=== PATIENT | female | born 1985 | race Asian ===

== ENCOUNTER 2019-01-07 14:12 | Emergency (ER) | payer OTHER ==
[~2019-01-07] VITALS: Ht 162.6 cm; Wt 63.5 kg
[2019-01-07] MEDS ORDERED: NKM (14:31)
[2019-01-07 14:41] VITALS: BP 106/71
--- NOTE | 2019-01-07 14:54 | Emergency Room Report ---
History of Present Illness General Chief Complaint: General Complaint Source: Patient Present Illness HPI 33-year-old female patient presents the ER complaining of heavy vaginal bleeding for the past 10 days. Reports feelings of increased lethargy during this time. Reports suprapubic pain during this time. Denies dysuria, hematuria , vaginal discharge. Reports during her previous menstrual cycle she had clots , denies clots currently. Denies syncope or fainting. Denies dizziness. Denies vomiting or diarrhea. Denies recent travel outside the country. Reports she does not take any control medication. Denies chest pain or shortness of breath. Denies fever. Reports able to pass flatus. Denies flank pain. Reports that she uses 1 pad every 2 hours. Denies other aggravating or relieving factors. Allergies: Coded Allergies: No Known Allergies (Unverified , 01/07/19) Patient History Past Medical History: see triage record Last Menstrual Period: on period Reviewed Nursing Documentation: PMH: Agreed; PSxH: Agreed Nursing Documentation-PMH Past Medical History: No Stated History Review of Systems All Other Systems: negative except mentioned in HPI Physical Exam Vital Signs Date Time Temp Pulse Resp B/P (MAP) Pulse Ox O2 Delivery O2 Flow Rate FiO2 01/07/19 14:27 98.1 94 16 106/71 96 Room Air Sp02 EP Interpretation: reviewed, normal General Appearance: well appearing, no apparent distress, alert, GCS 15, non- toxic Head: normocephalic, atraumatic Eyes: bilateral eye normal inspection, bilateral eye PERRL ENT: hearing grossly normal, normal pharynx, no angioedema, normal voice, uvula midline, moist mucus membranes Neck: full range of motion, no bony tend Respiratory: lungs clear, normal breath sounds, no rhonchi, no respiratory distress, no accessory muscle use, no wheezing, speaking full sentences Cardiovascular #1: regular rate, rhythm, no edema Gastrointestinal: non tender, soft, no mass, non-distended, no guarding, no rebound Genitourinary: no CVA tenderness Musculoskeletal: back normal, digits/nails normal, gait/station normal, normal range of motion, non-tender Neurologic: alert, oriented x3, responsive, motor strength/tone normal, sensory intact Psychiatric: mood/affect normal Skin: no rash Lymphatic: no adenopathy Medical Decision Making PA Attestation Dr. Barnes is my supervising Physician whom patient management has been discussed with. Diagnostic Impression: Primary Impression: Miscarriage ER Course Pt presents to ED c/o heavy vaginal bleeding x 10 days. DDX considered but are not limited to threatened , incomplete , complete , ectopic, UTI, septic , fibroids, dysfunctional uterine bleeding, STI, ovarian torsion, anemia. Negative Rovsing, no fever, low suspicion for appendicitis, does not require CT at this time. VITAL SIGNS are WNL, patient is afebrile Pelvic exam: cervical os opened or closed/ deferred. Ordered CBC, CMP, Type and Screen, UA, UCG, bHCG, IV NS and pelvic US. ER COURSE: CBC and CMP unremarkable,, H&H WNL, low suspicion for anemia UA results unremarkable, negative nitrites negative leukocyte esterase, elevated RBCs likely due to vaginal bleeding Urine negative however HCG qualitative positive and HCG quant elevated Rh antibody negative Blood type A positive Results discussed with patient. Pelvus US shows no evidence of IUP or ectopic . Results discussed with patient. Instructed patient to follow-up with [facility] specialist for serial hCG and repeat ultrasounds to confirm trending downward and rule out ectopic . Patient likely had a miscarriage. Patient resting comfortably, in no acute distress, nontoxic appearing. Denies abdominal pain. Okay for outpatient follow-up and treatment. F/u with OBGYN in 48 hours, need serial Beta HCG and US ER precautions given. Provided with contact information for [facility] specialist. DISCHARGE: At this time pt. is stable for d/c to home. At this time patient is resting comfortably, in no acute distress, nontoxic appearing, smiling and talking without difficulty. Will provide printed patient care instructions, and any necessary prescriptions. Patient instructed to follow with OBGYN for further treatment and referral as needed. Care plan and follow up instructions have been discussed with the patient prior to discharge. Patient reports understanding and agreement to treatment plan. Patient questions asked and answered. ER precautions given, patient instructed to return to ER immediately for any new or worsening of symptoms. - Please note that this Emergency Department Report was dictated using [employer] technology software, occasionally this can lead to erroneous entry secondary to interpretation by the dictation equipment. Labs Test 01/07/19 14:40 01/07/19 15:00 Urine Color Pale yellow Urine Appearance Clear Urine pH 5 (4.5-8.0) Urine Specific [place] 1.020 (1.005-1.035) Urine Protein Negative (NEGATIVE) Urine Glucose (UA) Negative (NEGATIVE) Urine Ketones Negative (NEGATIVE) Urine Blood 4+ (NEGATIVE) Urine Nitrite Negative (NEGATIVE) Urine Bilirubin Negative (NEGATIVE) Urine Urobilinogen Normal MG/DL (0.0-1.0) Urine Leukocyte Esterase Negative (NEGATIVE) Urine RBC 5-10 /HPF (0 - 2) Urine WBC 0-2 /HPF (0 - 2) Urine Squamous Epithelial Cells Few /LPF (NONE/OCC) Urine Bacteria Few /HPF (NONE) Urine HCG, Qualitative Negative (NEGATIVE) White Blood Count 8.1 K/UL (4.8-10.8) Red Blood Count 4.93 M/UL (4.20-5.40) Hemoglobin 14.7 G/DL (12.0-16.0) Hematocrit 42.3 % (37.0-47.0) Mean Corpuscular Volume 86 FL (80-99) Mean Corpuscular Hemoglobin 29.8 PG (27.0-31.0) Mean Corpuscular Hemoglobin Concent 34.7 G/DL (32.0-36.0) Red Cell Distribution Width 11.0 % (11.6-14.8) Platelet Count 151 K/UL (150-450) Mean Platelet Volume 6.6 FL (6.5-10.1) Neutrophils (%) (Auto) 63.1 % (45.0-75.0) Lymphocytes (%) (Auto) 28.4 % (20.0-45.0) Monocytes (%) (Auto) 5.1 % (1.0-10.0) Eosinophils (%) (Auto) 2.7 % (0.0-3.0) Basophils (%) (Auto) 0.7 % (0.0-2.0) Sodium Level 138 MMOL/L (136-145) Potassium Level 3.4 MMOL/L (3.5-5.1) Chloride Level 101 MMOL/L (98-107) Carbon Dioxide Level 30 MMOL/L (21-32) Anion Gap 8 mmol/L (5-15) Blood Urea Nitrogen 9 mg/dL (7-18) Creatinine 0.7 MG/DL (0.55-1.30) Estimat Glomerular Filtration Rate > 60 mL/min (>60) Glucose Level 138 MG/DL (74-106) Calcium Level 9.7 MG/DL (8.5-10.1) Total Bilirubin 0.3 MG/DL (0.2-1.0) Aspartate Amino Transf (AST/SGOT) 18 U/L (15-37) Alanine Aminotransferase (ALT/SGPT) 31 U/L (12-78) Alkaline Phosphatase 58 U/L (46-116) Total Protein 8.1 G/DL (6.4-8.2) Albumin 4.1 G/DL (3.4-5.0) Globulin 4.0 g/dL Albumin/Globulin Ratio 1.0 (1.0-2.7) Lipase 124 U/L (73-393) Human Chorionic Gonadotropin, Qual Positive (NEGATIVE) Human Chorionic Gonadotropin, Quant 46 mIU/mL (1-6) CT/MRI/US Diagnostic Results CT/MRI/US Diagnostic Results : Imaging Test Ordered: Pelvic US Impression If the patient has a positive hCG, there is no convincing evidence of an intrauterine or ectopic at this time. Suggest following the hCG trend and short interval follow-up ultrasound. In the setting of a negative hCG, there are no clear findings to explain the pelvic pain. Small free fluid is nonspecific but can be sequela of a ruptured ovarian cyst for example. Last Vital Signs Date Time Temp Pulse Resp B/P (MAP) Pulse Ox O2 Delivery O2 Flow Rate FiO2 01/07/19 14:41 94 16 Room Air 01/07/19 14:41 98.1 106/71 96 Status: improved Disposition: HOME, SELF-CARE Condition: Stable Patient Instructions: Miscarriage, [id number] Additional Instructions: Followup with OBGYN in 1-2 days for repeat US and serial HCG levels. Take medications as directed. Take Tylenol for pain. Patient questions asked and answered. ER precautions given, patient instructed to return to ER immediately for any new or worsening of symptoms including but not limited to chest pain, SOB, intractable vomiting, profuse vaginal bleeding, abdominal pain. Blood type A positive Rh anitbody negative Ryan Leonard Jan 07, 2019 14:54
[2019-01-07 15:20] LABS: APPEARANCE,URINE CLEAR; BILIRUBIN, URINE NEGATIVE (NEGATIVE); COLOR,URINE PALE YELLOW; GLUCOSE, URINE (UA) NEGATIVE (NEGATIVE); KETONES,URINE NEGATIVE (NEGATIVE); LEUKOCYTE ESTERASE ,URINE NEGATIVE (NEGATIVE); NITRITE,URINE NEGATIVE (NEGATIVE); PH,URINE 5 (4.5-8.0); PROTEIN,URINE NEGATIVE (NEGATIVE); UROBILINOGEN,URINE NORMAL MG/DL (0.0-1.0)
[2019-01-07 15:27] LABS: BASOPHILS % (AUTO) 0.7 % (0.0-2.0); EOSINOPHILS % (AUTO) 2.7 % (0.0-3.0); HEMATOCRIT 42.3 % (37.0-47.0); HEMOGLOBIN 14.7 G/DL (12.0-16.0); LYMPHOCYTES % (AUTO) 28.4 % (20.0-45.0); MEAN CORPUSCULAR VOLUME 86 FL (80-99); MONOCYTES % (AUTO) 5.1 % (1.0-10.0); NEUTROPHILS % (AUTO) 63.1 % (45.0-75.0); PLATELET COUNT 151 K/UL (150-450); RED BLOOD COUNT 4.93 M/UL (4.20-5.40); WHITE BLOOD COUNT 8.1 K/UL (4.8-10.8)
[2019-01-07 15:30] LABS: ANION GAP 8 mmol/L (5-15); BLOOD UREA NITROGEN 9 mg/dL (7-18); CALCIUM 9.7 MG/DL (8.5-10.1); CARBON DIOXIDE 30 MMOL/L (21-32); CHLORIDE 101 MMOL/L (98-107); CREATININE 0.7 MG/DL (0.55-1.30); POTASSIUM 3.4 MMOL/L (3.5-5.1); SODIUM 138 MMOL/L (136-145)
[2019-01-07 15:34] LABS: ALANINE AMINOTRANSFERASE 31 U/L (12-78); ALBUMIN 4.1 G/DL (3.4-5.0); ALKALINE PHOSPHATASE 58 U/L (46-116); ASPARTATE AMINO TRANSFERASE 18 U/L (15-37); BILIRUBIN,TOTAL 0.3 MG/DL (0.2-1.0)
[2019-01-07 19:20] VITALS: BP 110/86
--- NOTE | 2019-01-07 19:36 | Diagnostic Imaging Report ---
EXAM: US Pelvis Complete, Transabdominal CLINICAL HISTORY: ABD PAIN TECHNIQUE: Real-time transabdominal pelvic ultrasound (complete) with image documentation. COMPARISON: No relevant prior studies available. FINDINGS: Uterus/cervix: Possible small fibroid. Endometrial complex measures up to 8 mm. Right ovary: Ovaries are normal. Uterus measures 8.8 x 5.2 x 4.9 cm. Right ovary measures 1.8 x 1.5 x 2.2 cm. The left ovary measures 2. 5.5 x 1.6 cm. Suspected fibroid measures up to 1.1 cm. Normal blood flow. Left ovary: See above. Free fluid: Small free pelvic fluid noted. Bladder: Unremarkable as visualized. Wall is normal thickness for degree of distention. Other findings: No intrauterine seen. IMPRESSION: If the patient has a positive hCG, there is no convincing evidence of an intrauterine or ectopic at this time. Suggest following the hCG trend and short interval follow-up ultrasound. In the setting of a negative hCG, there are no clear findings to explain the pelvic pain. Small free fluid is nonspecific but can be sequela of a ruptured ovarian cyst for example.
== END 2019-01-07 19:20 | disposition home or self-care (01) ==
LOC: EMR 18:10
DX: O03.9 Complete or unspecified spontaneous abortion without complication (principal)
CPT/HCPCS: 36415; 76856; 80053; 81003; 81025; 83690; 84702; 84703; 85025; 86850; 86900; 86901; 96360; 99284

== ENCOUNTER 2019-01-09 10:57 | Emergency (ER) | payer OTHER ==
[~2019-01-09] VITALS: Ht 165.1 cm; Wt 63.5 kg
[~2019-01-09 10:57] MED LIST: NKM
[2019-01-09 11:52] LABS: BASOPHILS % (AUTO) 0.8 % (0.0-2.0); EOSINOPHILS % (AUTO) 2.5 % (0.0-3.0); HEMOGLOBIN 14.4 G/DL (12.0-16.0); MEAN CORPUSCULAR VOLUME 87 FL (80-99); MONOCYTES % (AUTO) 7.4 % (1.0-10.0); NEUTROPHILS % (AUTO) 62.3 % (45.0-75.0); PLATELET COUNT 138 K/UL (150-450); RED BLOOD COUNT 4.95 M/UL (4.20-5.40); RED CELL DISTRIBUTION WIDTH 11.1 % (11.6-14.8); WHITE BLOOD COUNT 7.2 K/UL (4.8-10.8)
--- NOTE | 2019-01-09 13:13 | Emergency Room Report ---
History of Present Illness General Chief Complaint: Complications Source: Patient Present Illness [facility] Patient was seen January 07, 2 days ago, for vaginal bleeding and back pain with history of being . An ultrasound with was done which did not reveal intrauterine and therefore there was some consideration of possible ectopic. Quantitative hCG was 46 at that time. She was discharged with a diagnosis of miscarriage. She was advised to follow-up in the clinic for repeat quantitative hCG. She presents to have that blood test done. She states she still has some mild back pain. The bleeding has decreased. Yesterday she had a pad every 2 hours. Today this is decreased and she is not passing any clot material. The pain in her back is rated 5/10 and aching. There is no radiation. There is no abdominal pain. She denies fevers or chills. The bleeding began 10 days ago. No dizziness or palpitations. No chest pain or shortness of breath. Blood type A+. 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 Reviewed Nursing Documentation: PMH: Agreed; PSxH: Agreed Nursing Documentation-PMH Past Medical History: No Stated History Review of Systems All Other Systems: negative except mentioned in HPI Physical Exam Vital Signs Date Time Temp Pulse Resp B/P (MAP) Pulse Ox O2 Delivery O2 Flow Rate FiO2 01/09/19 11:01 98.2 94 18 109/72 97 Room Air Sp02 EP Interpretation: reviewed, normal General Appearance: well appearing, no apparent distress Head: normocephalic, atraumatic Eyes: bilateral eye normal inspection, bilateral eye PERRL ENT: hearing grossly normal, normal voice, moist mucus membranes Neck: full range of motion, supple Respiratory: no respiratory distress, speaking full sentences Gastrointestinal: normal inspection, normal bowel sounds, non tender Genitourinary: no CVA tenderness, deferred - Due to previous ultrasound Musculoskeletal: back normal, gait/station normal, normal range of motion, other - Nontender back Neurologic: alert, oriented x3, normal gait, grossly normal Psychiatric: mood/affect normal Skin: no rash Medical Decision Making Diagnostic Impression: Primary Impression: Miscarriage ER Course Patient re-presents for repeat beta hCG. Differential includes miscarriage versus ectopic. Bleeding is decreased. CBC and beta hCG indicated. Tylenol is given. Quantitative hCG is 16. H&H normal. Discussed results with the patient. She states the pain is quite decreased. Patient stable for outpatient observation and treatment. Given listing of clinics for follow-up. Laboratory Tests Test 01/09/19 11:40 White Blood Count 7.2 K/UL (4.8-10.8) Red Blood Count 4.95 M/UL (4.20-5.40) Hemoglobin 14.4 G/DL (12.0-16.0) Hematocrit 43.0 % (37.0-47.0) Mean Corpuscular Volume 87 FL (80-99) Mean Corpuscular Hemoglobin 29.2 PG (27.0-31.0) Mean Corpuscular Hemoglobin Concent 33.5 G/DL (32.0-36.0) Red Cell Distribution Width 11.1 % (11.6-14.8) L Platelet Count 138 K/UL (150-450) L Mean Platelet Volume 6.7 FL (6.5-10.1) Neutrophils (%) (Auto) 62.3 % (45.0-75.0) Lymphocytes (%) (Auto) 27.0 % (20.0-45.0) Monocytes (%) (Auto) 7.4 % (1.0-10.0) Eosinophils (%) (Auto) 2.5 % (0.0-3.0) Basophils (%) (Auto) 0.8 % (0.0-2.0) Human Chorionic Gonadotropin, Quant 16 mIU/mL (1-6) H Last Vital Signs Date Time Temp Pulse Resp B/P (MAP) Pulse Ox O2 Delivery O2 Flow Rate FiO2 01/09/19 13:30 98.3 71 17 126/90 97 Room Air Status: improved Disposition: HOME, SELF-CARE Condition: Improved Referrals: [facility],REFERR[facility] (PCP) Jesús Rodriguez MD Jan 09, 2019 13:13
[2019-01-09 13:30] VITALS: BP 126/90
== END 2019-01-09 13:32 | disposition home or self-care (01) ==
LOC: EMR 11:25
DX: O03.9 Complete or unspecified spontaneous abortion without complication (principal); M54.9 Dorsalgia, unspecified
CPT/HCPCS: 36415; 84702; 85025; 99283